=== PATIENT | male | born 1975 | race Caucasian/White ===

== ENCOUNTER 2018-04-15 10:11 | Emergency (ER) | payer OTHER ==
[~2018-04-15] VITALS: Ht 177.8 cm; Wt 120.0 kg
[2018-04-15] MEDS ORDERED: MOTRIN800 MG PO (13:06)
[2018-04-15] MEDS ORDERED: PERCOCET 5/31 TABLET PO (13:06)
[2018-04-15 13:13] VITALS: BP 157/96
== END 2018-04-15 13:13 | disposition home or self-care (01) ==
LOC: EME 10:11
DX: S83.92XA Sprain of unspecified site of left knee, initial encounter (principal); Z89.512 Acquired absence of left leg below knee; W18.30XA Fall on same level, unspecified, initial encounter; F17.200 Nicotine dependence, unspecified, uncomplicated
CPT/HCPCS: 73564; 99281; 99285